=== PATIENT | female | born 1980 | race Two or more races ===

== ENCOUNTER 2024-12-07 09:51 | Emergency (ER) | payer MEDICAID, OTHER ==
[~2024-12-07] VITALS: Ht 165.1 cm; Wt 90.0 kg
--- NOTE | 2024-12-07 10:02 | ECG ---
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
[2024-12-07 10:32] LABS: Basophils # (auto) 0 10 ^3/uL (0-0.2); Basophils % (auto) 0.4 % (0.0-2.0); Eosinophils # (auto) 0.1 10 ^3/uL (0-0.8); Eosinophils % (auto) 1.4 % (0.0-7.0); Hematocrit 42.1 % (36.0-46.0); Lymphocytes # (auto) 1.7 10 ^3/uL (0.4-5.4); Lymphocytes % (auto) 31.5 % (10.0-50.0); Mean Corpuscular Hemoglobin 28.2 pg (28.0-32.0); Mean Corpuscular Hgb Conc. 33.4 g/dL (32.0-36.0); Mean Corpuscular Volume 84.6 fL (80.0-100.0); Monocytes # (auto) 0.3 10 ^3/uL (0-1.3); Monocytes % (auto) 5.2 % (0.0-12.0); Neutrophils # (auto) 3.3 10 ^3/uL (1.6-8.6); Neutrophils % (auto) 61.5 % (37.0-80.0); Nucleated Red Blood Cells % 0.1 %; Platelet Count (auto) 250 10^3/uL (140-450); Red Blood Cells 4.97 10^6/uL (4.0-5.20); Red Cell Distribution Width 14.1 % (11.8-14.3); White Blood Cell 5.4 10^3/uL (4.4-10.8)
[2024-12-07 10:47] LABS: Chloride 107 mmol/L (98-107); Sodium 140 mmol/L (136-145)
[2024-12-07 10:48] LABS: Anion Gap 6 (5-15); Carbon Dioxide 27 mmol/L (20-31)
[2024-12-07 10:49] LABS: Calcium 9.9 mg/dL (8.7-10.4)
[2024-12-07 10:53] LABS: Glucose 93 mg/dL (74-106)
[2024-12-07 10:54] LABS: BUN/Creatinine Ratio 12.7 (10.0-20.0); Blood Urea Nitrogen 10 mg/dL (9-23)
--- NOTE | 2024-12-07 10:58 | ED.PDOC ---
HPI Comments 44Y F presents to ED for chief complaint chest pain x this morning with SOB, nausea, back pain, and left arm pain/numbness/weakness. Pt states chest pain is left-sided and radiates to her back and left arm. Pain is described as pressure and worsens with movement and deep breathing. Pt denies cough, vomiting, diarrhea, and all urinary symptoms. Pt denies h/o HTN but states her BP at work today was 150/101. LMP 12/04/2024. No other symptoms reported. Pt denies tobacco and illicit drug use. Pt rarely consumes alcohol. Chief Complaint: Chest Pain Time Seen by MD: 10:12 Primary Care Provider: NEREYDA Reviewed Notes: Nurses Notes, Medications, Allergies Allergies: Coded Allergies: NO KNOWN ALLERGIES (Unverified , 12/07/24) Information Source: Patient Mode of Arrival: Ambulatory Severity: Mild Timing: Hours Duration: Since onset Location: Chest (L) Radiation: Back, Arm (L) Quality: Pressure Onset: At Rest Cardiac Risk Factors: None PE Risk Factors: None History of: None Modifying Factors: Coughing, Breathing, Movement, Position Change Associated Signs and Symptoms: Back Pain, Other Past Medical History PAST MEDICAL HISTORY: Denies 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, 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 Family History Family History: Unknown Social History Smoker: Non-Smoker Alcohol: Rarely Drugs: Denies Drug Use Lives In: Home Constitutional: denies: chills, diaphoresis, fatigue, fever, malaise, sweats, weakness, others EENTM: denies: blurred vision, double vision, ear bleeding, ear discharge, ear drainage, ear pain, ear ringing, eye pain, eye redness, hearing loss, mouth pain, mouth swelling, nasal discharge, nose bleeding, nose congestion, nose pain, photophobia, tearing, throat pain, throat swelling, voice changes, others Respiratory: reports: shortness of breath; denies: cough, hemoptysis, orthopnea, SOB at rest, SOB with excertion, stridor, wheezing, others Cardiovascular: reports: chest pain, left arm pain; denies: dizzy spells, diaphoresis, Dyspnea on exertion, edema, irregular heart beat, lightheadedness, palpitations, PND, syncope, others Gastrointestinal: reports: nausea; denies: abdomen distended, abdominal pain, blood streaked bowels, constipated, diarrhea, dysphagia, difficulty swallowing, hematemesis, melena, poor appetite, poor fluid intake, rectal bleeding, rectal pain, vomiting, others Genitourinary: denies: abnormal vagina bleeding, burning, dyspareunia, dysuria, flank pain, frequency, hematuria, incontinence, pain, , vagina discharge, urgency, others Neurological: reports: left sided numbness (left arm), left sided weakness (left arm); denies: dizziness, fainting, headache, numbness, paresthesia, pre- existing deficit, right sided numbness, right sided weakness, seizure, speech problems, tingling, tremors, weakness, others Musculoskeletal: reports: back pain; denies: gout, joint pain, joint swelling, muscle pain, muscle stiffness, neck pain, others Integumetry: denies: bruises, change in color, change in hair/nails, dryness, laceration, lesions, lumps, rash, wounds, others Allergic/Immunocompromised: denies: Difficulty Healing, Frequent Infections, Hives, Itching, others Hematologic/Lymphatic: denies: anemia, blood clots, easy bleeding, easy bruising, swollen glands, others Endocrine: denies: excessive hunger, excessive sweating, excessive thirst, excessive urination, flushing, intolerance to cold, intolerance to heat, unexplained weight gain, unexplained weight loss, others Psychiatric: denies: anxiety, bipolar disorder, depression, hopeless, panic disorder, schizophrenia, sleepless, suicidal, others All Other Systems: Reviewed and Negative Physical Exam General Appearance: No Apparent Distress, Normal HEENT: Normal ENT Inspection, Pharynx Normal, TMs Normal Neck: Full Range of Motion, Non-Tender, Normal, Normal Inspection Respiratory: Chest Non-Tender, Lungs Clear, No Accessory Muscle Use, No R espiratory Distress, Normal Breath Sounds Cardiovascular: No Edema, No JVD, No Murmur, No Gallop, Normal Peripheral Pulses, Regular Rate/Rhythm Breast Exam: Deferred Gastrointestinal: No Organomegaly, Non Tender, No Pulsatile Mass, Normal Bowel Sounds, Soft Genitalia: Deferred Pelvic: Deferred Rectal: Deferred Extremities: No calf tenderness, Normal capillary refill, Normal inspection, Normal range of motion, Non-tender, No pedal edema Musculoskeletal : Location: Left Extremity Location: Back, Chest Apperance: Tenderness Neurologic: Alert, it security 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 Was a procedure done?: No CP Differential Dx Differential Diagnosis: Anxiety / Panic Attack, Electrolyte Disorder X-Ray, Labs, Meds, VS Vital Signs Date Time Temp Pulse Resp B/P (MAP) Pulse Ox O2 Delivery O2 Flow Rate FiO2 12/07/24 11:17 61 16 99 Room Air* 0 21 12/07/24 11:16 61 12/07/24 11:16 97.8 61 16 149/68 (95) 99 97.8 12/07/24 10:47 63 12/07/24 10:13 97.9 68 20 147/84 (105) 99 12/07/24 10:01 66 Lab Test 12/07/24 11:01 12/07/24 10:05 12/07/24 10:00 Range/Units Troponin I High Sensitivity < 3 L < 3 L </=34 ng/L D-Dimer, Quantitative Pending White Blood Count 5.4 4.4-10.8 10^3/uL Red Blood Count 4.97 4.0-5.20 10^6/uL Hemoglobin 14.0 12.2-16.2 g/dL Hematocrit 42.1 36.0-46.0 % Mean Corpuscular Volume 84.6 80.0-100.0 fL Mean Corpuscular Hemoglobin 28.2 28.0-32.0 pg Mean Corpuscular Hemoglobin Concent 33.4 32.0-36.0 g/dL Red Cell Distribution Width 14.1 11.8-14.3 % Platelet Count 250 140-450 10^3/uL Mean Platelet Volume 9.2 6.9-10.8 fL Neutrophils (%) (Auto) 61.5 37.0-80.0 % Lymphocytes (%) (Auto) 31.5 10.0-50.0 % Monocytes (%) (Auto) 5.2 0.0-12.0 % Eosinophils (%) (Auto) 1.4 0.0-7.0 % Basophils (%) (Auto) 0.4 0.0-2.0 % Neutrophils # (Auto) 3.3 1.6-8.6 10 ^3/uL Lymphocytes # (Auto) 1.7 0.4-5.4 10 ^3/uL Monocytes # (Auto) 0.3 0-1.3 10 ^3/uL Eosinophils # (Auto) 0.1 0-0.8 10 ^3/uL Basophils # (Auto) 0 0-0.2 10 ^3/uL Nucleated Red Blood Cells 0.1 % Urine Test Negative Negative Sodium Level 140 136-145 mmol/L Potassium Level 4.0 3.5-5.1 mmol/L Chloride Level 107 98-107 mmol/L Carbon Dioxide Level 27 20-31 mmol/L Anion Gap 6 5-15 Blood Urea Nitrogen 10 9-23 mg/dL Creatinine 0.79 0.550-1.02 mg/dL Glomerular Filtration Rate Calc 95 >90 mL/min BUN/Creatinine Ratio 12.7 10.0-20.0 Serum Glucose 93 74-106 mg/dL Calcium Level 9.9 8.7-10.4 mg/dL Lipase 35 12-53 U/L Time of 1ST Reevaluation: 10:42 Reevaluation 1ST: Unchanged Patient Education/Counseling: Diagnosis, Treatment Family Education/Counseling: No Family Present Critical Care Note Critical Care Time?: No Stability Stability form required: No Heart Score Heart Score: Heart Score Response (Comments) Value History Slightly Suspicious 0 EKG Normal 0 Age <45 0 Risk Factors No known risk factors 0 Troponin Normal limit 0 Total 0 I personally scribed for ER ([email or web address]) on 12/07/24 at 11:17. Electronically submitted by Tennille Montenegro (Layer). I personally scribed for ER ([email or web address]) on 12/07/24 at 13:03. Electronically submitted by Tennille Montenegro (Layer). LISSY GARCIA MD Dec 07, 2024 10:58 ER Dec 07, 2024 11:17
[2024-12-07 11:17] VITALS: PULSE 61; RESP 16; O2SAT 99
--- NOTE | 2024-12-07 12:24 | DVH ---
CHEST RADIOGRAPH Indication: CHEST PAIN Technique: Single frontal view of the chest was obtained COMPARISON: None FINDINGS: No pneumothorax, pulmonary edema, or consolidative infiltrates. The heart is not enlarged. IMPRESSION: 1. No acute intrathoracic process.
--- NOTE | 2024-12-07 13:05 | ED.PDOC ---
HPI Comments 44Y F presents to ED for chief complaint chest pain x this morning with SOB, nausea, back pain, and left arm pain/numbness/weakness. Pt states chest pain is left-sided and radiates to her back and left arm. Pain is described as pressure and worsens with movement and deep breathing. She also states that she presses on her chest she can reproduce her pain. Pt denies cough, vomiting, diarrhea, and all urinary symptoms. Pt denies h/o HTN but states her BP at work today was 150/101. LMP 12/04/2024. No other symptoms reported. Pt denies tobacco and illicit drug use. Pt rarely consumes alcohol. Chief Complaint: Chest Pain Time Seen by MD: 10:12 Primary Care Provider: NEREYDA Reviewed Notes: Nurses Notes, Medications, Allergies Allergies: Coded Allergies: NO KNOWN ALLERGIES (Unverified , 12/07/24) Information Source: Patient Mode of Arrival: Ambulatory Severity: Mild Timing: Hours Duration: Since onset Location: Chest (L) Radiation: Back, Arm (L) Quality: Pressure Onset: At Rest Cardiac Risk Factors: None PE Risk Factors: None History of: None Modifying Factors: Breathing, Movement, Position Change Associated Signs and Symptoms: SOB, Back Pain, Other Past Medical History PAST MEDICAL HISTORY: Denies 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, 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 Family History Family History: Unknown Social History Smoker: Non-Smoker Alcohol: Rarely Drugs: Denies Drug Use Lives In: Home Constitutional: denies: chills, diaphoresis, fatigue, fever, malaise, sweats, weakness, others EENTM: denies: blurred vision, double vision, ear bleeding, ear discharge, ear drainage, ear pain, ear ringing, eye pain, eye redness, hearing loss, mouth pain, mouth swelling, nasal discharge, nose bleeding, nose congestion, nose pain, photophobia, tearing, throat pain, throat swelling, voice changes, others Respiratory: reports: shortness of breath; denies: cough, hemoptysis, orthopnea, SOB at rest, SOB with excertion, stridor, wheezing, others Cardiovascular: reports: chest pain, left arm pain; denies: dizzy spells, diaphoresis, Dyspnea on exertion, edema, irregular heart beat, lightheadedness, palpitations, PND, syncope, others Gastrointestinal: reports: nausea; denies: abdomen distended, abdominal pain, blood streaked bowels, constipated, diarrhea, dysphagia, difficulty swallowing, hematemesis, melena, poor appetite, poor fluid intake, rectal bleeding, rectal pain, vomiting, others Genitourinary: denies: abnormal vagina bleeding, burning, dyspareunia, dysuria, flank pain, frequency, hematuria, incontinence, pain, , vagina di scharge, urgency, others Neurological: reports: left sided numbness (left arm), left sided weakness (left arm); denies: dizziness, fainting, headache, numbness, paresthesia, pre- existing deficit, right sided numbness, right sided weakness, seizure, speech problems, tingling, tremors, weakness, others Musculoskeletal: reports: back pain; denies: gout, joint pain, joint swelling, muscle pain, muscle stiffness, neck pain, others Integumetry: denies: bruises, change in color, change in hair/nails, dryness, laceration, lesions, lumps, rash, wounds, others Allergic/Immunocompromised: denies: Difficulty Healing, Frequent Infections, Hives, Itching, others Hematologic/Lymphatic: denies: anemia, blood clots, easy bleeding, easy bruising, swollen glands, others Endocrine: denies: excessive hunger, excessive sweating, excessive thirst, excessive urination, flushing, intolerance to cold, intolerance to heat, unexplained weight gain, unexplained weight loss, others Psychiatric: denies: anxiety, bipolar disorder, depression, hopeless, panic disorder, schizophrenia, sleepless, suicidal, others All Other Systems: Reviewed and Negative Physical Exam General Appearance: No Apparent Distress, Normal HEENT: Normal ENT Inspection, Pharynx Normal, TMs Normal Neck: Full Range of Motion, Non-Tender, Normal, Normal Inspection Respiratory: Chest Non-Tender, Lungs Clear, No Accessory Muscle Use, No Respiratory Distress, Normal Breath Sounds, Other (Positive tenderness to palpation of the anterior left side of her chest wrapping around to her back which reproduces her chief complaint, no evidence of rash or ecchymosis or any other signs of trauma.) Cardiovascular: No Edema, No JVD, No Murmur, No Gallop, Normal Peripheral Pulses, Regular Rate/Rhythm Breast Exam: Deferred Gastrointestinal: No Organomegaly, Non Tender, No Pulsatile Mass, Normal Bowel Sounds, Soft Genitalia: Deferred Pelvic: Deferred Rectal: Deferred Extremities: No calf tenderness, Normal capillary refill, Normal inspection, Normal range of motion, Non-tender, No pedal edema Musculoskeletal : Location: Left Extremity Location: Back, Chest Apperance: Tenderness 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 Was a procedure done?: No CP Differential Dx Differential Diagnosis: Anxiety / Panic Attack, Electrolyte Disorder, Heart Failure, TN, V-Fib, V-Tach Differential Diagnosis: Costochondritis X-Ray, Labs, Meds, VS Vital Signs Date Time Temp Pulse Resp B/P (MAP) Pulse Ox O2 Delivery O2 Flow Rate FiO2 12/07/24 13:27 97.3 64 16 152/82 (105) 98 97.3 12/07/24 11:17 61 16 99 Room Air* 0 21 12/07/24 11:16 61 12/07/24 11:16 97.8 61 16 149/68 (95) 99 97.8 12/07/24 10:47 63 12/07/24 10:13 97.9 68 20 147/84 (105) 99 12/07/24 10:01 66 Lab Test 12/07/24 11:01 12/07/24 10:05 12/07/24 10:00 Range/Units Troponin I High Sensitivity < 3 L < 3 L </=34 ng/L D-Dimer, Quantitative 0.23 0.0-0.49 mg/L FEU White Blood Count 5.4 4.4-10.8 10^3/uL Red Blood Count 4.97 4.0-5.20 10^6/uL Hemoglobin 14.0 12.2-16.2 g/dL Hematocrit 42.1 36.0-46.0 % Mean Corpuscular Volume 84.6 80.0-100.0 fL Mean Corpuscular Hemoglobin 28.2 28.0-32.0 pg Mean Corpuscular Hemoglobin Concent 33.4 32.0-36.0 g/dL Red Cell Distribution Width 14.1 11.8-14.3 % Platelet Count 250 140-450 10^3/uL Mean Platelet Volume 9.2 6.9-10.8 fL Neutrophils (%) (Auto) 61.5 37.0-80.0 % Lymphocytes (%) (Auto) 31.5 10.0-50.0 % Monocytes (%) (Auto) 5.2 0.0-12.0 % Eosinophils (%) (Auto) 1.4 0.0-7.0 % Basophils (%) (Auto) 0.4 0.0-2.0 % Neutrophils # (Auto) 3.3 1.6-8.6 10 ^3/uL Lymphocytes # (Auto) 1.7 0.4-5.4 10 ^3/uL Monocytes # (Auto) 0.3 0-1.3 10 ^3/uL Eosinophils # (Auto) 0.1 0-0.8 10 ^3/uL Basophils # (Auto) 0 0-0.2 10 ^3/uL Nucleated Red Blood Cells 0.1 % Urine Test Negative Negative Sodium Level 140 136-145 mmol/L Potassium Level 4.0 3.5-5.1 mmol/L Chloride Level 107 98-107 mmol/L Carbon Dioxide Level 27 20-31 mmol/L Anion Gap 6 5-15 Blood Urea Nitrogen 10 9-23 mg/dL Creatinine 0.79 0.550-1.02 mg/dL Glomerular Filtration Rate Calc 95 >90 mL/min BUN/Creatinine Ratio 12.7 10.0-20.0 Serum Glucose 93 74-106 mg/dL Calcium Level 9.9 8.7-10.4 mg/dL Lipase 35 12-53 U/L [place] [id number] Ph: [phone] DIAGNOSTIC IMAGING Diagnostic Imaging Report : [id number] Signed PATIENT: DONNIE ALMANZA LOCCT: [id number] UNIT: [id number] : 1980 LOC: ER ROOM / BED: / AGE / SEX: 44 / F ADM STATUS: REG ER SERVICE 1013 ORDERING PHYSICIAN: LISSY GARCIA MD PROCEDURE(s): CXR1 - CHEST XRAY 1 VIEW REASON: CHEST PAIN ORDER NUMBER(s): [id number], ACCESSION NUMBER(s): [id number] CHEST RADIOGRAPH Indication: CHEST PAIN Technique: Single frontal view of the chest was obtained COMPARISON: None FINDINGS: No pneumothorax, pulmonary edema, or consolidative infiltrates. The heart is not enlarged. IMPRESSION: 1. No acute intrathoracic process. ATED BY: ROCK VAZQUEZ MD DICTATED DATE/TIME: 12/07/24 1221 SIGNED BY: ROCK VAZQUEZ MD SIGNED DATE/TIME: 12/07/24 1221 CC: X-Ray, Labs, Meds, VS Comment 44-year-old female here today with complaints of musculoskeletal chest wall/back pain. Vital signs stable, afebrile. Physical exam as above with evidence of tenderness to palpation of her chest and back which reproduces her primary complaint. Labs overall reassuring including 2- troponins and 2 EKGs without evidence of acute ischemia. D-dimer negative, doubt PE. No significant electrolyte abnormalities. Chest x-ray without evidence of acute pathology such as pneumonia or pneumothorax. I had a long discussion with the patient about her symptoms and instructed her to follow up with the primary care provider within 2-3 days for evaluation. And provided the patient with strict return precautions for persistent chest pain, numbness, weakness, diaphoresis, p.o. intolerance, fevers, any other concerning symptoms. Patient expressed understanding and was discharged home in stable condition ambulating with a steady gait in no distress. Time of 1ST Reevaluation: 10:42 Reevaluation 1ST: Unchanged Time of 2ND Reevaluation: 14:54 Reevaluation 2ND: Resolved Patient Education/Counseling: Diagnosis, Treatment, Prognosis, Need For Follow Up Family Education/Counseling: No Family Present Departure 1 Departure Time of Disposition: 10:42 Impression: Primary Impression: Musculoskeletal chest pain Disposition: 01 HOME / SELF CARE / HOMELESS Condition: Stable Critical Care Note Critical Care Time?: No Stability Stability form required: No Heart Score Heart Score: Heart Score Response (Comments) Value History Slightly Suspicious 0 EKG Normal 0 Age <45 0 Risk Factors No known risk factors 0 Troponin Normal limit 0 Total 0 I personally scribed for LISSY GARCIA MD ([email or web address]) on 12/07/24 at 13:05. Electronically submitted by Tennille Montenegro ([email or web address]). I personally scribed for LISSY GARCIA MD ([email or web address]) on 12/07/24 at 13:06. Electronically submitted by Tennille Montenegro ([email or web address]). LISSY GARCIA MD Dec 07, 2024 13:05
[2024-12-07 13:27] VITALS: BP 152/82; PULSE 64; RESP 16; TEMP 97.3; O2SAT 98
--- NOTE | 2024-12-10 07:08 | ECG ---
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
== END 2024-12-07 15:21 | disposition home or self-care (01) ==
LOC: ER 09:51
DX: R07.89 Other chest pain (principal); R06.02 Shortness of breath; M54.9 Dorsalgia, unspecified; Z90.49 Acquired absence of other specified parts of digestive tract; Z98.890 Other specified postprocedural states
CPT/HCPCS: 36415; 71045; 80048; 81025; 83690; 84484; 85025; 85379; 93005